=== PATIENT | male | born 1950 | race Caucasian/White ===

== ENCOUNTER 2018-02-26 06:18 | Day surgery (SDC) | payer MEDICARE ==
[~2018-02-26] VITALS: Ht 180.3 cm; Wt 93.3 kg
[~2018-02-26 06:18] MED LIST: ASPI325T PO; ATOR20TA PO; CART120C2 PO; CLOP75 PO; DIGO0.25 PO; LISI-360 PO; METO25 PO; NITR0.4S SL
[2018-02-26] MEDS ORDERED: IOHEXOL 350 MG/ML 100 ML BTL (for Cath Lab) OTHER ONE (06:19)
[2018-02-26 06:54] VITALS: BP 168/88; PULSE 71; RESP 18; TEMP 98.1; O2SAT 95
[2018-02-26] MEDS ORDERED: SODIUM CHLOR 0.9% 1000 ML INJ 1,000 ML IV SCH ×2 (07:00→09:46)
[2018-02-26] MEDS ORDERED: DILT180C PO (07:03)
[2018-02-26] MEDS ORDERED: NITR0.4S SL (07:03)
[2018-02-26] MEDS ORDERED: CLOP75TA PO (07:03)
[2018-02-26] MEDS ORDERED: ASPI-183 PO (07:03)
[2018-02-26] MEDS ORDERED: INDO25CA PO (07:03)
[2018-02-26] MEDS ORDERED: ATOR40TA16 PO (07:03)
[2018-02-26] MEDS ORDERED: DIGO0.12 PO (07:03)
[2018-02-26] MEDS ORDERED: HEPARIN-NS/PF FLUSH BAG 2,000 ML IV FLUSH ONE (07:52)
[2018-02-26] MEDS ORDERED: NITROGLYCERIN INJ 5 ML ONE (07:53)
[2018-02-26] MEDS ORDERED: HEPARIN SODIUM - IV 10,000 UNITS/10 ML VIAL ONE (07:53)
[2018-02-26] MEDS ORDERED: MIDAZOLAM HCL 2 MG/2 ML VIAL ONE (08:07)
[2018-02-26] MEDS ORDERED: diphenhydrAMINE HCL 50 MG/ML VIAL ONE (08:07)
[2018-02-26] MEDS ORDERED: HYDROCORTISONE SOD SUCCINATE 100 MG VIAL ONE (08:14)
[2018-02-26] MEDS ORDERED: BIVALIRUDIN 250 MG VIAL ONE (09:08)
[2018-02-26] MEDS ORDERED: BIVALIRUDIN INJ 250 MG in SODIUM CHLORIDE 0.9% INJ 50 ML IV SCH (09:46)
--- NOTE | 2018-02-26 09:55 | CATHPROC ---
[facility] HIS Report Study Information Study Number Admission Scheduled Start Study Start [id number] Feb 26 2018 6:18AM 02/26/2018 Feb 26 2018 8:03AM [place] [facility] Cardiac Catheterization Admit Source Facility Department Other [facility] - Marketing Strategy Analyst Physician and Clinical Staff Initial Terrell Shook Classroom Assistant Jose Sales,RYANN Other cathlab, cathlab Recorder Amari Whiting RCIS(BS) Recorder Gaby Hobbs BSN Scrub Indigo AveryRT(R) Procedures Performed Procedure Location (Site) Vessel Name Coronary Angiograms LCA Left Coronary Coronary Angiograms RCA Right Coronary Drug Eluting Inflatio LAD Mid Left Coronary Drug Eluting Inflatio RCA Mid Right Coronary L Heart Cath PTCA LAD Mid Left Coronary PTCA RCA Mid Right Coronary Wire insertion Radial (right) Radial Art. Equipment Time Language Translator Description Size Mfg Part Number Used/Scraped COPILOT VALVE, BLEEDBACK [id number] 08:49 [employer] Used CONTROL *[id number] TRANSDUCER, TRUWAVE [id number] 08:13 BRADLEY REGALADO * Used W/STOCKCOCK *[id number] [phone] *[id number] *[id number] [phone] *[id number] 08:13 [employer]Rx PACK, CCL CUSTOM * Used *[id number] 08:13 [employer] SUPPORT, ARTERIAL ADULT 52480 *[id number] Used [id number] 08:13 [facility] PACER PEN, SKIN DUAL W/ RULER * Used *[id number] BALLOON, 2.25 X 20MM [id number] 09:11 MEDTRONIC 20MM Used EUPHORA *[id number] BALLOON, 3.0 X 15MM NC [id number] 09:38 MEDTRONIC 15MM Used EUPHORA *[id number] 08:19 MEDTRONIC JR 5.0 DXTERITY CATHETER fr 5 [id number] Used 09:15 MEDTR[employer]IC STENT, 2.25 26MM TONI 2.25 26MM [id number] Used [id number] 09:32 [employer] STENT, 3.0 26MM TONI 3.0 26MM Used *[id number] 09:12 [employer]Samp MEDICAL 30 KALIA INDEFLATOR Used *[id number] BAND, RADIAL COMPRESSION TR [id number] 09:46 [employer] MEDICAL 24CM Used SHORT 24 *[id number] SHEATH, FR6 RADIAL PRELUDE 08:13 [employer] FR 6 [id number] Used EASE 11CM [id number] 08:13 [employer] MEDICAL WIRE, EXCHANGE 260CM 3MMJ 260CM Used *[id number] 08:13 [employer] OMNIPAQUE, 350 MG, 150ML 150ML [id number] Used [id number] 08:13 [facility] BLANKET,WARM AIR CCL * Used *[id number] WIRE, RUNTHROUGH NS FLOPPY [id number] 09:28 TERncyclo[employer] MEDICAL 180CM Used .014 180CM *[id number] 08:51 [employer] PRIME WIRE, VERRATA 185CM 185CM Used *[id number] Equipment Model, Serial, Lot Number and Expiration Data Description Model Number Serial Number Lot Number Expiration Date JR 5.0 DXTERITY CATHETER [id number] 05-15-2020 STENT, 2.25 26MM TONI [id number] 09-29-2019 STENT, 3.0 26MM TONI [id number] 11-09-2019 History: Current Medications Medication Dosage/Unit Route Frequency Last Date/Time Taken Statins (any) ASA PLAVIX History: Allergies Allergy Reaction potassium iodide RASH/ITCH sodium iodide RASH/ITCH iodine RASH/ITCH povidone-iodine RASH/ITCH metoprolol HIVES History: Risk Factors Family History of Hypertension Dyslipidemia Previous [place] Previous Heart Failure Premature CAD Yes Yes Yes No No Prior Valve Prior PCI Prior PCIDate Prior CABG Surgery No Yes 10/13/2010 No Cerebrovascular Peripheral Artery Chronic Lung On Dialysis Diabetes Disease Disease Disease No No No No No History: Symptoms/Diagnosis Selection Items Chest pain History: CV Disease Selection Items Known CAD History: Stress Tests Stress or Imaging Studies Performed Yes Stress Test SPECT Stress Test SPECT Result Stress Test SPECT Ischemia Risk/Extent Yes Positive Intermediate History: Other Disease Selection Items CAD HTN History: [place]/CV Data Previous Cath Date 10/13/2010 History: Other Current Smoker Method Quit Packs a Day Years Used Pack Years No Cigarettes 30 Years Ago 1 10 10 Labs Hgb (g/dl) Hct (%) WBC (l/cumm) Platelets (thousands) 11.60-17.00 35.00-51.00 4.00-11.00 150.00-450.00 13.6 42 4.9 181 Glucose (mg/dl) BUN (mg/dl) Creatinine (mg/dl) BUN:Creatinine (1:x) 74.00-106.00 7.00-18.00 0.50-1.30 10.00-20.00 159 9 1.0 9 Na (meq/l) K (meq/l) 136.00-145.00 3.50-5.10 142 4.3 INR (PTT:PT) 0.90-1.10 0.9 CPK-MB (ng/ML) 0.50-3.60 Not Drawn Medication Medication Total Dose (Bolus/Oral) Medication Total Dosage/Unit 1% XYLOCAINE 3 mL ANGIOMAX BOLUS 14 mL BENADRYL 25 mg FENTANYL 50 mcg HEPARIN 9000 units NTG (IC) 200 mcg PEPCID 20 mg SOLU-CORTEF 100 mg VERSED 2 mg Medications (Bolus/Oral) Medication Time Given Dosage/Unit Administered By Reason PEPCID 02/26/2018 8:17:20 AM 20 mg Mónica, Jose 20 mg PEPCID given in lab by Jose Sales RN in Left Hand via Peripheral IV. Ordered by Aysha Herman. SOLU-CORTEF 02/26/2018 8:20:20 AM 100 mg Mónica, Jose 100 mg SOLU-CORTEF given in lab by Jose Sales RN in Left Hand via Peripheral IV. Ordered by Terrell Herman. BENADRYL 02/26/2018 8:22:40 AM 25 mg Mónica, Jose 25 mg BENADRYL given in lab by Jose Sales RN in Left Hand via Peripheral IV. Ordered by Poncho Herman. VERSED 02/26/2018 8:32:34 AM 2 mg Mónica, Jose 2 mg VERSED given in lab by Jose Sales RN in Left Hand via Peripheral IV. Ordered by Leslie Herman. FENTANYL 02/26/2018 8:33:43 AM 50 mcg Mónica, Jose 50 mcg FENTANYL given in lab by Jose Sales RN in Left Hand via Peripheral IV. Ordered by St joya Herman. 1% XYLOCAINE 02/26/2018 8:36:48 AM 3 mL Terrell Herman 3 mL 1% XYLOCAINE given in lab by Terrell Herman in Right Radial via Subcutaneous. Ordered by Terrell Herman. NTG (IC) 02/26/2018 8:38:15 AM 200 mcg Terrell Herman 200 mcg NTG (IC) given in lab by Terrell Herman in Right Radial via Intra-arterial. Ordered by Terrell Herman. HEPARIN 02/26/2018 8:39:21 AM 5000 units Jose Sales 5000 units HEPARIN given in lab by Jose Sales RN in Left Hand via Peripheral IV. Ordered by Terrell Herman. HEPARIN 02/26/2018 8:51:16 AM 2000 units Jose Sales 2000 units HEPARIN given in lab by Jose Sales RN in Left Hand via Peripheral IV. Ordered by Terrell Herman. HEPARIN 02/26/2018 9:08:26 AM 2000 units Jose Sales 2000 units HEPARIN given in lab by Jose Sales RN in Left Hand via Peripheral IV. Ordered by Terrell Herman. ANGIOMAX BOLUS 02/26/2018 9:12:57 AM 14 mL Jose Sales 14 mL ANGIOMAX BOLUS given in lab by Jose Sales RN via Peripheral IV. Ordered by Terrell Herman. Medication (Drip) Medication Time Given Dosage/Unit Concentration/Unit Diluent (ml) Solution ANGIOMAX DRIP 02/26/2018 9:19:40 AM 1.747 mg/kg/hr 250 mg 50 NaCl .9 1.747 mg/kg/hr ANGIOMAX DRIP given in lab by Jose Sales RN via Peripheral IV. Pump/Drip Flow = 32. 6 ml/hr using NaCl .9 with a concentration of 250 mg in 50 ml. Ordered by Terrell Herman. IV Solutions 02/26/2018 8:12:09 AM 0 mL (IV) 500 NaCl .9 Patient arrived on IV Solutions given by cathlab, cathlab in Left Hand via Peripheral IV. Pump/Drip F low = 20 ml/hr using NaCl .9. Ordered by Terrell Herman. Initial Case Assessment Cardiovascular HR Rhythm NIBP Chest Pain 71 nsr 160/87 0 Edema Present Skin color Skin None Normal Warm Dry Circulatory - Right Pulses Dorsalis Pedis Femoral Radial 2 2 2 Scale (0,1,2,3,4,d) Scale (0,1,2,3,4,d) Circulatory - Lower Extremities Color Lower Right Color Lower Left Normal Normal Neurological State Oriented to time-place- Alert Moves all extremities person Respiration - General Respiration Rate SpO2 (%) (B/min) 15 97 Final Case Assessment Cardiovascular HR Rhythm NIBP Chest Pain 87 nsr 159/93 0 Edema Present Skin color Skin None Normal Warm Dry Circulatory - Right Pulses Dorsalis Pedis Femoral Radial 2 2 2 Scale (0,1,2,3,4,d) Scale (0,1,2,3,4,d) Circulatory - Lower Extremities Color Lower Right Color Lower Left Normal Normal Neurological State Oriented to time-place- Alert Moves all extremities person Respiration - General Respiration Rate SpO2 (%) (B/min) 12 99 Chronological Log Time Study Chronological Log 8:05:33 Patient arrived via Bed. 8:05:34 Patient Name, D.O.B, / Armband Verified By R.N. 8:05:34 Consent signed by the physician and the patient and verified by the Marketing Strategy Analyst staff. 8:05:37 Allens test performed on the right radial and ulnar artery. 8:05:40 Patient has been NPO for More than 6Hrs. 8:11:58 Skin Breakdown- none per patient 8:11:59 Patient Warmer Placed on the Table. 8:11:59 Willy Prominences Protected 8:12:01 A # 20 IV was noted in the Hand (left). Grade = 0 Patient arrived on IV Solutions given by cathlab, cathlab in Left Hand via Peripheral IV. Pump/ Drip Flow = 20 ml/hr 8:12:09 using NaCl .9. Ordered by Terrell Herman. 8:12:28 History and physical on the chart or being dictated. 8:12:32 Allens test performed on the right radial and ulnar artery. POSITIVE. Assessment: Initial Case, HR=71 BPM, Rhythm=nsr, AISW=830/87 mmhg, Chest Pain=0, Edema=None, Co jam=Normal, Skin = Warm, Dry Right Pulses: Saji Ped=2, Femoral=2, Radial=2 8:13:23 Lower Right Extremities: Color=Normal Lower Left Extremities: Color=Normal Neurological: State=Alert, Ox3, [place] Respiration: Resp=15 B/min, SpO2=97 % 8:13:24 Reference ECG taken Vitals capture started with the following parameters, Patient=Adult, Interval=5 min, Initial Pre qcxox=520 mmHg, 8:13:25 Deflation Rate=5 mmHg, Cuff placed on Left Arm 8:14:04 HR=73 bpm, UCUO=300/87 mmhg, SpO2=98.0 %, Resp=15 B/min, Pain=0, Tera=10, Greene=2 8:17:20 20 mg PEPCID given in lab by Jose Sales RN in Left Hand via Peripheral IV. Ordered by Terrell Celis. 8:19:09 HR=75 bpm, PWVV=802/81 mmhg, SpO2=97.0 %, Resp=13 B/min, Pain=0, Tera=10, Greene=2 8:19:54 Right Radial and groin(s) prepped with 2% chlorhexidine, and draped after a 3 min. waiting t wilfred. 8:20:20 100 mg SOLU-CORTEF given in lab by Jose Sales RN in Left Hand via Peripheral IV. Ordered by Terrell Herman. 8:22:40 25 mg BENADRYL given in lab by Jose Sales RN in Left Hand via Peripheral IV. Ordered by Terrell Bhagat. 8:24:08 HR=73 bpm, DNXW=870/89 mmhg, SpO2=99.0 %, Resp=14 B/min, Pain=0, Tera=10, Greene=2 8:25:03 paged 8:26:40 Pressure channel 1 zeroed. 8:28:50 MD responded 8:29:09 HR=73 bpm, PSCE=684/92 mmhg, SpO2=99.0 %, Resp=14 B/min, Pain=0, Tera=10, Greene=2 8:32:03 arrived. 8:32:07 Contrast Scanned 8:32:07 Immediate Presedation assesment performed by physician. 8:32:34 2 mg VERSED given in lab by Jose Sales RN in Left Hand via Peripheral IV. Ordered by Terrell Rutledge. 8:33:43 50 mcg FENTANYL given in lab by Jose Sales RN in Left Hand via Peripheral IV. Ordered by Terrell Herman. 8:34:10 HR=84 bpm, KKBN=790/80 mmhg, SpO2=99.0 %, Resp=14 B/min, Pain=0, Tera=10, Greene=2 Time Out. Correct patient, correct procedure, correct physician, power injector not loaded with contrast with surgical 8:36:08 team present. Time Out Concurred by MD and individual staff in procedure. 8:36:27 Case Start 8:36:28 Verbal Stimulation=2 Physical Stimulation=2 Airway=2 Respiration=2 TOTAL=8. (0=absent, 1=antunez ited, 2=present) 8:36:48 3 mL 1% XYLOCAINE given in lab by Terrell Herman in Right Radial via Subcutaneous. Ordered b Terrell Chambers. 8:37:39 Access site was Right Radial Artery. A SHEATH, FR6 RADIAL PRELUDE EASE 11CM FR 6 was advanced into the Radial (right) using the Roman vasquez 8:38:08 technique. 8:38:15 200 mcg NTG (IC) given in lab by Terrell Herman in Right Radial via Intra-arterial. Ordered by Terrell Herman. 8:38:55 In the Radial (right) the SHEATH, FR6 RADIAL PRELUDE EASE 11CM FR [address] by Terrell Herman. 8:39:11 HR=77 bpm, ZCXA=827/84 mmhg, SpO2=95.0 %, Resp=13 B/min, Pain=0, Tera=10, Greene=2 8:39:21 5000 units HEPARIN given in lab by Jose Sales RN in Left Hand via Peripheral IV. Ordered by Terrell Herman. 8:39:45 A JR 5.0 DXTERITY CATHETER fr 5 was advanced over a wire. contrast was used for injections. Recorded Pressure: Ao, HR=71, Condition=Condition 1 8:40:12 (Aorta) Ao 89/47/68 8:40:24 The RCA was injected and visualized at various angles. OMNIPAQUE, 350 MG, 150ML 150ML used. After removing the current catheter a JL 3.5 INFINITI CATHETER FR 5 was advanced over a WIRE, EX CHANGE 260CM 8:42:07 3MMJ 260CM. Recorded Pressure: Ao, HR=71, Condition=Condition 1 8:42:18 (Aorta) Ao 48/26/36 Vitals capture started with the following parameters, Patient=Adult, Interval=5 min, Initial Pre mpkzc=090 mmHg, 8:43:28 Deflation Rate=5 mmHg, Cuff placed on Left Arm 8:44:08 HR=71 bpm, WJDK=462/79 mmhg, SpO2=93.0 %, Resp=15 B/min, Pain=0, Tera=10, Greene=2 8:45:24 The LCA was injected and visualized at various angles. OMNIPAQUE, 350 MG, 150ML 150ML used. 8:48:26 Catheter was removed 8:49:07 HR=77 bpm, RBFY=707/80 mmhg, SpO2=94.0 %, Resp=11 B/min, Pain=0, Tera=9, Greene=2 8:50:58 A AL 3 GUIDE CATHETER FR 6 was advanced over a wire. OMNIPAQUE, 350 MG, 150ML 150ML was used for injections. 8:51:16 2000 units HEPARIN given in lab by Jose Sales RN in Left Hand via Peripheral IV. Ordered by Terrell Herman. 8:54:09 HR=80 bpm, FYCQ=908/82 mmhg, SpO2=94.0 %, Resp=11 B/min, Pain=0, Tera=9, Greene=2 8:59:03 HR=71 bpm, MAKW=878/82 mmhg, SpO2=95.0 %, Resp=11 B/min, Pain=0, Tera=10, Greene=2 9:00:14 A PRIME WIRE, VERRATA 185CM 185CM was inserted via Radial (right). 9:01:54 Interventional wire has crossed the lesion 9:02:13 Flow Wire was was placed in the LAD Mid. The FFR measures ~FFR~ percent. The IFR measures 0. 89 Percent. 9:04:07 HR=71 bpm, MRFB=409/82 mmhg, SpO2=96.0 %, Resp=12 B/min, Pain=0, Tera=10, Greene=2 9:04:53 Flow Wire was was placed in the LAD Mid. The FFR measures ~FFR~ percent. The IFR measures 0. 88 Percent. 9:05:35 Flow Wire was was placed in the LAD Prox. The FFR measures ~FFR~ percent. The IFR measures 0 .95 Percent. 9:08:26 2000 units HEPARIN given in lab by Jose Sales RN in Left Hand via Peripheral IV. Ordered by Terrell Herman. 9:09:10 HR=74 bpm, FJIX=415/78 mmhg, SpO2=97.0 %, Resp=13 B/min, Pain=0, Tera=9, Greene=2 A BALLOON, 2.25 X 20MM EUPHORA 20MM was inserted over PRIME WIRE, VERRATA 185CM 185CM via the Ra dial 9:11:50 (right). A BALLOON, 2.25 X 20MM EUPHORA 20MM over a PRIME WIRE, VERRATA 185CM 185CM in the LAD Mid was in flated 9:12:11 using a 30 KALIA INDEFLATOR at 12 kalia for 20 sec. 9:12:57 14 mL ANGIOMAX BOLUS given in lab by Jose Sales RN via Peripheral IV. Ordered by Haylee Herman. 9:13:07 Balloon Removed. 9:14:09 HR=73 bpm, ABGQ=190/84 mmhg, SpO2=96.0 %, Resp=13 B/min, Pain=0, Tera=9, Greene=2 A STENT, 2.25 26MM TONI 2.25 26MM was advanced through a AL 3 GUIDE CATHETER FR 6 over a PRIME W NEGIN, 9:15:06 VERRATA 185CM 185CM. A STENT, 2.25 26MM TONI 2.25 26MM was deployed using a 30 KALIA INDEFLATOR at 16 atmospheres for 1 0 seconds 9:15:56 in the LAD Mid. 9:17:18 Re-inflated the stent balloon in the LAD Mid to 6 KALIA for 30 seconds. 9:19:08 HR=85 bpm, NQHR=593/89 mmhg, SpO2=97.0 %, Resp=14 B/min, Pain=0, Tera=9, Greene=2 9:19:20 Delivery device removed 9:19:28 The PRIME WIRE, VERRATA 185CM 185CM was removed. 9:19:36 Catheter was removed 1.747 mg/kg/hr ANGIOMAX DRIP given in lab by Jose Sales RN via Peripheral IV. Pump/Drip Flow = 32.6 ml/hr 9:19:40 using NaCl .9 with a concentration of 250 mg in 50 ml. Ordered by Terrell Herman. A JL 3.5 INFINITI CATHETER FR 5 was advanced over a wire. OMNIPAQUE, 350 MG, 150ML 150ML was use d for 9:20:31 injections. 9:21:41 The LCA was injected and visualized at various angles. OMNIPAQUE, 350 MG, 150ML 150ML used. After removing the current catheter a JR 5.0 GUIDE CATHETER FR 6 was advanced over a WIRE, EXCHA NGE 260CM 9:23:35 3MMJ 260CM. 9:24:11 HR=86 bpm, QEWL=948/87 mmhg, SpO2=97.0 %, Resp=14 B/min, Pain=0, Tera=9, Greene=2 A MPA-2 INFINITI CATHETER FR 4 was advanced over a wire into the guide. OMNIPAQUE, 350 MG, 150ML 150ML was 9:25:36 used for injections. 9:26:55 MPA catheter was removed 9:28:04 A WIRE, RUNTHROUGH NS FLOPPY .014 180CM 180CM was inserted via Radial (right). 9:29:12 HR=79 bpm, YTRS=845/88 mmhg, SpO2=98.0 %, Resp=14 B/min A BALLOON, 2.25 X 20MM EUPHORA 20MM was inserted over WIRE, RUNTHROUGH NS FLOPPY .014 180CM 180C M 9:29:12 via the Radial (right). A BALLOON, 2.25 X 20MM EUPHORA 20MM over a WIRE, RUNTHROUGH NS FLOPPY .014 180CM 180CM in the RC A 9:29:57 Mid was inflated using a 30 KALIA INDEFLATOR at 12 kalia for 12 sec. 9:30:51 Balloon Removed. A STENT, 3.0 26MM TONI 3.0 26MM was advanced through a JR 5.0 GUIDE CATHETER FR 6 over a WIRE, 9:31:58 RUNTHROUGH NS FLOPPY .014 180CM 180CM. A STENT, 3.0 26MM TONI 3.0 26MM was deployed using a 30 KALIA INDEFLATOR at 16 atmospheres for 13 seconds in 9:32:20 the RCA Mid. 9:34:09 HR=82 bpm, FWHK=586/94 mmhg, SpO2=98.0 %, Resp=14 B/min, Pain=0, Tera=9, Greene=2 9:37:10 Delivery device removed A BALLOON, 3.0 X 15MM NC EUPHORA 15MM was inserted over WIRE, RUNTHROUGH NS FLOPPY .014 180CM 1 80CM 9:38:13 via the Radial (right). A BALLOON, 3.0 X 15MM NC EUPHORA 15MM over a WIRE, RUNTHROUGH NS FLOPPY .014 180CM 180CM in the RCA 9:38:54 Mid was inflated using a 30 KALIA INDEFLATOR at 20 kalia for 20 sec. 9:39:12 HR=79 bpm, RCPU=990/85 mmhg, SpO2=98.0 %, Resp=13 B/min, Pain=0, Tera=9, Greene=2 9:39:32 Balloon Removed. 9:39:39 Wire removed 9:39:51 Catheter was removed over a wire 9:40:02 Case End 9:40:19 No case complications noted. 9:40:20 Cine recording checked. 9:44:11 HR=79 bpm, ELHD=434/93 mmhg, SpO2=98.0 %, Resp=14 B/min, Pain=0, Tera=10, Greene=2 Radial Compression Device Used. 10 mLs of air placed in BAND, RADIAL COMPRESSION TR SHORT 24 24 CM. Affected 9:45:05 hand 95 % O2 saturation. 9:46:33 Holding Area notified of successful intervention. 9:46:44 Bedside Report will be given. 9:46:45 Implantable Device card placed in patient's chart. 9:46:50 A Left Heart Cath was performed. Assessment: Final Case, HR=87 BPM, Rhythm=nsr, LWJE=668/93 mmhg, Chest Pain=0, Edema=None, [place] r=Normal, Skin = Warm, Dry Right Pulses: Saji Ped=2, Femoral=2, Radial=2 9:47:13 Lower Right Extremities: Color=Normal Lower Left Extremities: Color=Normal Neurological: State=Alert, Ox3, [place] Respiration: Resp=12 B/min, SpO2=99 % 9:48:41 Vitals capture stopped. 9:50:54 Patient moved to stretcher End Study - Contrast Media Used In Study Contrast Total Opened (mL) Total Used (mL) Total Wasted (mL) Omnipaque 155 155 0 End Study - Maximum Contrast Load Max Contrast Load (mL) 466.6 End Study - Radiation Exposure Fluoro Time (minutes) 11.6 End Study - Patient Disposition Complications Transferred To Interventional Outcome No Marketing Strategy Analyst Holding successful
[2018-02-26] MEDS ORDERED: oxyCODONE/ACETAMINOPHEN 5 MG/325 MG TAB PO PRN (10:00)
[2018-02-26] MEDS ORDERED: TEMAZEPAM 15 MG CAP PO PRN (10:00)
[2018-02-26] MEDS ORDERED: ACETAMINOPHEN 325 MG TAB PO PRN (10:00)
[2018-02-26] MEDS ORDERED: BACITRACIN OINT 0.9 GM PKT TOP ONE (10:00)
[2018-02-26] MEDS ORDERED: LIDOCAINE 2% JELLY 30 ML TUBE TOP PRN (10:00)
[2018-02-26] MEDS ORDERED: MISC INFORMATION XX ONE (10:00)
--- NOTE | 2018-02-26 10:33 | MA ---
cc: Terrell Herman MD DATE: 02/26/2018 INDICATION: Unstable angina, intermediate risk stress test. PROCEDURES PERFORMED: 1. Fluoroscopy with interpretation. 3. Coronary angiography. 2. Pressure derived fractional flow reserve measurement of the left anterior descending coronary artery. 4. Percutaneous coronary intervention with drug-eluting stents to the mid-left anterior descending and mid-right coronary arteries. METHOD: Risks, benefits and alternatives were discussed with the patient. The patient understood and consented to the procedure. The patient was brought into the catheterization lab. The patient placed on the catheterization table. The right wrist was prepped and draped in sterile fashion. The right wrist was anesthetized with 2% lidocaine. The right radial artery was cannulated. A 6-Welsh, 7-cm sheath was placed without difficulty. 200 mcg of intraarterial nitroglycerin and 5000 units of intravenous heparin was administered through the sheath. CORONARY ANGIOGRAPHY: 1. Left main coronary has mild luminal irregularities. 2. Left anterior descending coronary has about a 50% stenosis proximally. The midsegment is smaller caliber size with 75% stenosis present. The distal left anterior descending coronary has mild luminal irregularities. A couple small diagonal branches which have some minor luminal irregularities. 3. Circumflex has about a 30% stenosis in the mid-segment, bifurcation of a moderate-sized obtuse marginal branch. 4. Right coronary has a stent present through the entire mid-segment. There is 80% stenosis in the mid-segment. Posterior descending and posterolateral branch are widely patent. Right coronary artery is dominant. PRESSURE DERIVED FRACTIONAL FLOW RESERVE MEASUREMENT IN THE LEFT ANTERIOR DESCENDING CORONARY ARTERY: The left anterior descending coronary appeared angiographically borderline for stenosis. We engaged the left coronary system with a 6-Welsh AL3 guide catheter. Pressure wire was then zeroed and advanced to the end of the catheter and normalized. The wire was then advanced to the mid-left anterior descending coronary just beyond the lesion of the mid-stenosis. IFR was performed in two attempts, which came back as 0.88, which does meet hemodynamic significance. We pulled the pressure wire back to just beyond the proximal stenosis and repeated the IFR which came back at 0.95, which does not meet hemodynamic stenosis. This result would suggest that the mid-left anterior descending coronary artery is significant whereas the proximal is not. PERCUTANEOUS INTERVENTION: A 2.25 x 20 mm RX balloon was then advanced down to the mid-segment of the left anterior descending coronary and deployed. Repeat angiography still showed severe residual stenosis. A 2.25 x 26 mm RX Resolute Prieto drug-eluting stent was advanced down to the mid-left anterior descending coronary and deployed. Repeat angiography showed no residual stenosis. Attention was then directed towards the right coronary artery. A JR5 guide catheter was selectively engaged in the right coronary artery. A 0.014-inch, 180-cm Appsindep RunThrough wire was navigated down the distal posterior descending branch. The 2.25 x 20 mm RX balloon was then deployed in the mid-segment just to gather length of the lesion. A 3.0 x 26 mm RX Resolute drug-eluting stent was then advanced down to the mid-segment and deployed, postdilated with a 3.0 x 15 mm RX Noncompliant balloon to 20 atmospheres. Repeat angiography showed no residual stenosis, MITALI 3 flow. Wires were removed. Guide catheter removed. HemoBand applied. Angiomax administered through the entire procedure to maintain appropriate anticoagulation. CONCLUSIONS: 1. Severe mid-left anterior descending coronary stenosis confirmed by pressure derived fractional flow reserve measurement. 2. Severe in-stent restenosis of the mid-right coronary artery. 3. Successful percutaneous intervention with drug-eluting stents to the mid-left anterior descending coronary and mid-right coronary arteries. PLAN: The patient will be monitored closely for any post-procedure complication, continued on aggressive medical therapy which includes aspirin, Plavix, statin therapy. The patient has history of COPD and a calcium channel rickey in contraindication to beta blockade. If the patient does well, we may consider discharge later today since we went from a radial approach and he has already confirmed he tolerates Plavix well. MD SIVAN Freitas/SB , 09:54 AM , 10:32 AM
== END 2018-02-26 15:07 | disposition home or self-care (01) ==
LOC: HDOC 06:18 → HDIC 06:18 → HDOC 15:07
PROVIDERS: ATTEND Internal Medicine
DX: I25.110 Atherosclerotic heart disease of native coronary artery with unstable angina pectoris (principal); I48.0 Paroxysmal atrial fibrillation; I10 Essential (primary) hypertension; E78.5 Hyperlipidemia, unspecified; J44.9 Chronic obstructive pulmonary disease, unspecified; Z79.82 Long term (current) use of aspirin; Z72.0 Tobacco use
CPT/HCPCS: 86850; 86900; 86901; 92928; 92929; 93458; 93571; 99152; 99153; C1725; C1769; C1874; C1887; C1893; J0583; J1200; J1644; J1720; J2250; J3010; Q9967

== ENCOUNTER 2018-05-21 20:07 | Inpatient (IN) ==
[2018-05-21] MEDS ORDERED: Nitroglycerin Drip Premix 50 MG/250 ML BOTTLE IV.CONT PRN (20:25)
[2018-05-21] MEDS ORDERED: Morphine Inj 4 MG/ML Vial IV.PUSH ONE (20:25)
[2018-05-21] MEDS ORDERED: Heparin Drip 25,000 UNIT/250 ML BAG IV.CONT PRN (20:37)
[2018-05-21] MEDS ORDERED: Heparin 10,000 UNITS/10 ML Vial (for IV use) IV.PUSH STA (20:38)
--- NOTE | 2018-05-21 20:42 | ED ---
HPI General Chief Complaint: Chest Pain Stated Complaint: chest pain Time Seen by Provider: 05/21/18 20:25 Source: patient Mode of arrival: ambulatory Limitations: no limitations History of Present Illness HPI narrative: Patient is a 67-year-old male with a recent catheterization by Dr. farfan he has cardiac artery disease he is has LAD disease as well as right coronary artery disease he has an allergy to beta-blockers they give him a severe rash and I am unable to give him any Lopressor he took is on baby aspirin 3:00 today while at rest left-sided chest pain that radiates up his shoulder and down his left arm heaviness constant it is not alleviated he took his own be full 325 aspirin without relief of symptoms. Comes into the ER he is not diaphoretic is not nauseous he is not vomiting his heart rate is 100 on the monitor and on his EKG normal sinus at a rate of 101 on EKG I give him morphine to do for vasodilation I give him nitroglycerin drip for vasodilation and I give him heparin to anticoagulate and I called Dr. Farfan who agrees with the plan and I will admit him to telemetry if his troponins returned normal otherwise he may go to cath if his troponins come back elevated and trying to get him pain-free with the nitroglycerin drip complaint: chest pain Complete Quality Measures for STEMI Alert Patients STEMI Alert: No Onset (ago): hour(s) Duration: constant Onset: during rest Pain location: substernal and left chest Severity: moderate Severity scale (1-10): 5 Quality: heaviness Pain radiation: LUE Relieving factors: nothing Exacerbating factors: nothing Context: other (We have stents placed in February by Dr. farfan) Treatments prior to arrival chest pain: aspirin (325mg po) Related Data Home Medications Medication Instructions Recorded Confirmed atorvastatin 20 mg PO DAILY 05/21/18 05/21/18 clopidogrel 75 mg PO DAILY 05/21/18 05/21/18 digoxin mg PO DAILY 05/21/18 diltiazem HCl [Cartia XT] mg PO DAILY 05/21/18 Allergies Allergy/AdvReac Type Severity Reaction Status Date / Time metoprolol Allergy Severe HIVES Verified 05/21/18 20:13 iodine Allergy Unknown RASH/ITCH Verified 05/21/18 20:13 potassium iodide Allergy Unknown RASH/ITCH Verified 05/21/18 20:13 povidone-iodine Allergy Unknown RASH/ITCH Verified 05/21/18 20:13 sodium iodide Allergy Unknown RASH/ITCH Verified 05/21/18 20:13 sodium iodide Allergy Unknown RASH/ITCH Verified 05/21/18 20:13 Review of Systems ROS: all other systems reviewed are negative Cardiovascular Reports chest pain and Reports chest pain at rest [facility] Medical History Medical History HTN (hypertension) (Acute) High cholesterol (Acute) Surgical History Surgical History Hx of heart artery stent (Acute) Social History Social History Substance History: No History of Abuse Smoking Status: Former smoker How Often Do You Have a Drink Containing Alcohol: Never Recent Travel in [facility] within the Last 8 Weeks: No Recent Out of Country Travel within the Last 8 Weeks: No Immunization History Tetanus Immunization: Unsure Hx Influenza Vaccine This Season: No Exam Narrative Exam Narrative: GENERAL: Awake alert no diaphoresis no sign of distress SKIN: Warm and dry. HEAD: Atraumatic. Normocephalic. EYES: Pupils equal and round. No scleral icterus. No injection or drainage. ENT: No nasal bleeding or discharge. Mucous membranes pink and moist. NECK: Trachea midline. No JVD. CARDIOVASCULAR: Regular [id number] bpm and rhythm. Heart rate is 100 sinus RESPIRATORY: No accessory muscle use. Clear to auscultation. Breath sounds equal bilaterally. GASTROINTESTINAL: Abdomen soft, non-tender, nondistended. Hepatic and splenic margins not palpable. MUSCULOSKELETAL: Extremities without clubbing, cyanosis, or edema. No obvious deformities. NEUROLOGICAL: Awake and alert. No obvious cranial nerve deficits. Motor grossly within normal limits. Five out of 5 muscle strength in the arms and legs. Normal speech. PSYCHIATRIC: Appropriate mood and affect; insight and judgment normal. Course Initial Documented Vital Signs Temperature 98.8 F 05/21/18 20:13 Pulse Rate 105 H 05/21/18 20:13 Respiratory Rate 22 05/21/18 20:13 Blood Pressure 171/83 H 05/21/18 20:13 Pulse Oximetry 97 05/21/18 20:13 Last Documented Vital Signs Temperature 98.8 F 05/21/18 20:13 Pulse Rate 92 H 05/22/18 01:56 Respiratory Rate 18 05/22/18 01:56 Blood Pressure 145/74 H 05/22/18 01:56 Pulse Oximetry 96 05/22/18 00:30 Medical Decision Making [facility] Narrative Medical decision making narrative: Patient is given nitroglycerin drip patient is given heparin drip and bolus patient is given aspirin that he took himself at home and patient is given morphine for vasodilation pending troponin will admit to telemetry I spoke with Dr. Farfan who agrees with the plan. Patient has an allergy to Lopressor her beta-blockers will not be able to slow his heart at this time patient's repeat troponin is negative 2 patient's case is discussed with Dr. farfan I admit the patient to Dr. Lawler and Dr. alvarado with output and transitional orders heparinized nitroglycerin drip and admitted to telemetry for cardiac consult in the a.m. repeat EKG is normal sinus rhythm Differential Diagnosis Differential Diagnosis: Mental diagnosis is GERD versus acute coronary syndrome versus ischemic versus coronary artery disease versus vasospasm of coronary arteries versus pneumonia versus gastritis versus pancreatitis versus muscle spasm of neck muscles Lab Data Result diagrams: 05/21/18 20:51 05/21/18 20:51 Lab Results 05/21/18 05/21/18 05/21/18 Range/Units 20:51 20:51 20:51 WBC 10.9 (4.0-11.0) th/mm3 RBC 4.65 (4.50-5.90) mil/mm3 Hgb 14.7 (13.0-17.0) gm/dL Hct 42.8 (39.0-51.0) % MCV 92.0 (80.0-100.0) fL MCH 31.7 (27.0-34.0) pg MCHC 34.4 (32.0-36.0) % RDW 12.6 (11.6-17.2) % Plt Count 193 (150-450) th/mm3 MPV 8.4 (7.0-11.0) fL Neut % (Auto) 81.0 H (16.0-70.0) % Lymph % (Auto) 9.5 (9.0-44.0) % Pike % (Auto) 9.1 H (0.0-8.0) % Eos % (Auto) 0.2 (0.0-4.0) % Baso % (Auto) 0.2 (0.0-2.0) % Neut # (Auto) 8.8 H (1.8-7.7) th/mm3 Lymph # (Auto) 1.0 (1.0-4.8) th/mm3 Pike # (Auto) 1.0 H (0.0-0.9) th/mm3 Eos # (Auto) 0.0 (0.0-0.4) th/mm3 Baso # (Auto) 0.0 (0.0-0.2) th/mm3 WBC Differential . Differential Comment Auto diff final PT 9.9 (9.8-11.6) sec INR 1.0 Ratio APTT 24.6 (24.3-30.1) sec Sodium 138 (136-145) meq/L Potassium 4.2 (3.5-5.1) meq/L Chloride 104 (98-107) meq/L Carbon Dioxide 27.4 (21.0-32.0) meq/L Anion Gap 7 (5-15) meq/L BUN 14 (7-18) mg/dL Creatinine 1.12 (0.60-1.30) mg/dL Estimated GFR 66 L (>89) mL/min Random Glucose 126 H (74-106) mg/dL Calcium 8.8 (8.5-10.1) mg/dL Troponin I Less than 0.02 L (0.02-0.05) ng/mL Digoxin (0.8-2.0) ng/mL 05/21/18 Range/Units 23:35 WBC (4.0-11.0) th/mm3 RBC (4.50-5.90) mil/mm3 Hgb (13.0-17.0) gm/dL Hct (39.0-51.0) % MCV (80.0-100.0) fL MCH (27.0-34.0) pg MCHC (32.0-36.0) % RDW (11.6-17.2) % Plt Count (150-450) th/mm3 MPV (7.0-11.0) fL Neut % (Auto) (16.0-70.0) % Lymph % (Auto) (9.0-44.0) % Pike % (Auto) (0.0-8.0) % Eos % (Auto) (0.0-4.0) % Baso % (Auto) (0.0-2.0) % Neut # (Auto) (1.8-7.7) th/mm3 Lymph # (Auto) (1.0-4.8) th/mm3 Pike # (Auto) (0.0-0.9) th/mm3 Eos # (Auto) (0.0-0.4) th/mm3 Baso # (Auto) (0.0-0.2) th/mm3 WBC Differential Differential Comment PT (9.8-11.6) sec INR Ratio APTT (24.3-30.1) sec Sodium (136-145) meq/L Potassium (3.5-5.1) meq/L Chloride (98-107) meq/L Carbon Dioxide (21.0-32.0) meq/L Anion Gap (5-15) meq/L BUN (7-18) mg/dL Creatinine (0.60-1.30) mg/dL Estimated GFR (>89) mL/min Random Glucose (74-106) mg/dL Calcium (8.5-10.1) mg/dL Troponin I Less than 0.02 L (0.02-0.05) ng/mL Digoxin 0.6 L (0.8-2.0) ng/mL Imaging Data Radiologist's impression: Chest X-Ray 05/21/18 20:37 CONCLUSION: Stable chest without evidence of acute cardiopulmonary process. Discharge Plan Discharge Disposition Patient Disposition: 30 Still Patient Discharge Details Diagnosis: Chest pain Physicians Team ED Provider: Marlon Perez Primary Care Provider: Leroy Turner Attending Provider: Brandon Erickson Other Providers: Terrell Farfan Status ED Status: Admitted Patient
--- NOTE | 2018-05-21 20:56 | XR ---
EXAM DATE: 05/21/2018 8:54 PM EDT AGE/SEX: 67 years / Male INDICATIONS: Chest pain. CLINICAL DATA: This is the patient's initial encounter. Patient reports that signs and symptoms have been present for 1 day and indicates a pain score of 9/10. MEDICAL/SURGICAL HISTORY: . Myocardial infarction. . Stents. COMPARISON: [facility] [place], CHEST SINGLE AP, 03/17/2015. . FINDINGS: A single AP view of the chest demonstrates the lungs to be symmetrically aerated without evidence of mass, infiltrate or effusion. The cardiomediastinal contours are unremarkable. Osseous structures a re intact. CONCLUSION: Stable chest without evidence of acute cardiopulmonary process. Electronically signed by: Nithin Moran MD 05/21/2018 8:55 PM EDT
[2018-05-21 21:27] LABS: Baso % (Auto) 0.2 % (0.0-2.0); Eos % (Auto) 0.2 % (0.0-4.0); Hematocrit 42.8 % (39.0-51.0); Hemoglobin 14.7 gm/dL (13.0-17.0); Lymph % (Auto) 9.5 % (9.0-44.0); Mean Corpuscular HGB Conc 34.4 % (32.0-36.0); Mean Corpuscular Hemoglobin 31.7 pg (27.0-34.0); Mean Platelet Volume 8.4 fL (7.0-11.0); Mono % (Auto) 9.1 % (0.0-8.0); Neut # (Auto) 8.8 th/mm3 (1.8-7.7); Platelet Count 193 th/mm3 (150-450); Red Blood Count 4.65 mil/mm3 (4.50-5.90); Red Cell Distribution Width 12.6 % (11.6-17.2); White Blood Count 10.9 th/mm3 (4.0-11.0)
[2018-05-21 21:40] LABS: Activated Partial Thrombo Time 24.6 sec (24.3-30.1); Prothrombin Time 9.9 sec (9.8-11.6)
[2018-05-21 21:43] LABS: Anion Gap 7 meq/L (5-15); Blood Urea Nitrogen 14 mg/dL (7-18); Calcium 8.8 mg/dL (8.5-10.1); Carbon Dioxide 27.4 meq/L (21.0-32.0); Chloride 104 meq/L (98-107); Glomerular Filtration Rate 66 mL/min (>89); Glucose,Random 126 mg/dL (74-106); Potassium 4.2 meq/L (3.5-5.1); Sodium 138 meq/L (136-145)
[2018-05-21] MEDS ORDERED: Acetaminophen 325 MG Tablet PO PRN (23:21)
[2018-05-22 00:20] LABS: Digoxin 0.6 ng/mL (0.8-2.0)
[2018-05-22] MEDS: Morphine Sulfate Inj 2 MG/ML Vial IV.PUSH PRN ×2 (03:07→07:40)
--- NOTE | 2018-05-22 07:43 | P.CONCA ---
<Eber Escobar - Last Filed: 05/22/18 07:34> History of Present Illness Primary Care Provider: Leroy Turner History of Present Illness: 67-year-old male with past medical history of CAD with RCA stent 2017 and LAD stent 02/2018, paroxysmal atrial fibrillation, HTN, HLD who presented for chest pain. The patient reports at rest yesterday he developed sudden onset of bandlike chest discomfort across the front of his chest, similar to previous angina. Pain 8/10 in severity. He took aspirin and came to the ED, morphine seemed to help the pain some. Pain is still currently 45/10 in severity. EKG appears to show [address] depressions, which are new compared to 2015 EKG. Troponin 0 0.023. Review of Systems All other systems reviewed negative except as stated in HPI PMFSH - History History Provided By: Patient - Medical History Medical History: Medical History (Last Updated 05/22/18 @ 07:38 by LUNA Gordillo) CAD (coronary artery disease) HTN (hypertension) High cholesterol Paroxysmal atrial fibrillation - Surgical History Surgical History: Surgical History (Last Updated 05/21/18 @ 20:17 by Rambo Amato) Hx of heart artery stent - Tobacco History Tobacco Use In Past 30 Days: No Smoking Status: Former smoker - Alcohol History How Often Do You Have a Drink Containing Alcohol: Never - Substance Use History Substance History: No History of Abuse - Travel History Recent Travel in the [place] Within the Last 8 Weeks: No Recent Travel Out of the Country Within the Last 8 Weeks: No - Immunization History Tetanus Immunization: Unsure Hx Influenza Vaccine This Season: No Medications and Allergies Allergies Allergy/AdvReac Type Severity Reaction Status Date / Time metoprolol Allergy Severe HIVES Verified 05/21/18 20:13 iodine Allergy Unknown RASH/ITCH Verified 05/21/18 20:13 potassium iodide Allergy Unknown RASH/ITCH Verified 05/21/18 20:13 povidone-iodine Allergy Unknown RASH/ITCH Verified 05/21/18 20:13 sodium iodide Allergy Unknown RASH/ITCH Verified 05/21/18 20:13 sodium iodide Allergy Unknown RASH/ITCH Verified 05/21/18 20:13 Home Medications Medication Instructions Recorded Confirmed Type atorvastatin 40 mg PO HS 05/21/18 05/22/18 History clopidogrel 75 mg PO DAILY 05/21/18 05/21/18 History digoxin 125 mcg PO DAILY 05/21/18 05/22/18 History diltiazem HCl [Cartia XT] 180 mg PO DAILY 05/21/18 05/22/18 History aspirin 81 mg PO DAILY 05/22/18 05/22/18 History omeprazole 20 mg PO DAILY 05/22/18 05/22/18 History Active Medications: Active Medications Acetaminophen (Tylenol) 650 mg PO Q4H PRN PRN Reason: Acute Pain Nitroglycerin/Dextrose (Nitroglycerin Drip Premix) 50 mg in 250 mls @ 0 mls/hr IV.CONT TITRATE PRN; Protocol PRN Reason: Per Protocol Last Titration: 05/22/18 07:01 Dose: 15 mcg/min, 4.5 mls/hr Heparin Sodium/Dextrose (Heparin/D5w 25,000 U/250 Ml) 25,000 unit in 250 mls @ 0 mls/hr IV.CONT TITRATE PRN; Protocol PRN Reason: Per Protocol Last Titration: 05/22/18 07:01 Dose: 1,000 units/hr, 10 mls/hr Morphine Sulfate (Morphine Inj) 2 mg IV.PUSH Q3H PRN PRN Reason: Acute Pain Last Admin: 05/22/18 03:07 Dose: 2 mg Sodium Chloride (Ns Flush) 2 ml IV.FLUSH UNSCH PRN PRN Reason: FLUSH AFTER USING IV ACCESS Exam Vital signs: Vital Signs 05/21/18 20:13 05/21/18 20:47 05/21/18 21:25 Temperature 98.8 F Pulse Rate 105 H 83 Respiratory Rate 22 18 Blood Pressure 171/83 H 160/84 H Pulse Oximetry 97 97 95 05/21/18 23:31 05/22/18 00:30 05/22/18 01:56 Temperature Pulse Rate 95 H 88 92 H Respiratory Rate 19 18 18 Blood Pressure 145/74 H 141/75 H 145/74 H Pulse Oximetry 95 96 05/22/18 04:59 Temperature Pulse Rate 92 H Respiratory Rate 20 Blood Pressure 143/84 H Pulse Oximetry Intake & Output 05/21/18 05/22/18 05/22/18 18:59 06:59 18:59 Weight 200 lb Narrative: GENERAL: Well-developed well-nourished. In no acute distress. NECK: No carotid bruits. No JVD. CARDIOVASCULAR: Regular rate and rhythm. No murmur appreciated. RESPIRATORY: No accessory muscle use. Clear to auscultation. Breath sounds equal bilaterally. MUSCULOSKELETAL: No clubbing or cyanosis. No edema. NEUROLOGICAL: Awake and alert. Normal speech. Results 05/21/18 20:51 05/21/18 20:51 Cardiac Enzymes 05/21/18 05/21/18 05/22/18 Range/Units 20:51 23:35 05:07 Troponin I Less than 0.02 L Less than 0.02 L Less than 0.02 L (0.02-0.05) ng/mL Coagulation 05/21/18 05/22/18 Range/Units 20:51 05:07 PT 9.9 (9.8-11.6) sec APTT 24.6 40.5 H D (24.3-30.1) sec CBC 05/21/18 Range/Units 20:51 WBC 10.9 (4.0-11.0) th/mm3 RBC 4.65 (4.50-5.90) mil/mm3 Hgb 14.7 (13.0-17.0) gm/dL Hct 42.8 (39.0-51.0) % Plt Count 193 (150-450) th/mm3 Neut # (Auto) 8.8 H (1.8-7.7) th/mm3 Lymph # (Auto) 1.0 (1.0-4.8) th/mm3 Mckean # (Auto) 1.0 H (0.0-0.9) th/mm3 Eos # (Auto) 0.0 (0.0-0.4) th/mm3 Baso # (Auto) 0.0 (0.0-0.2) th/mm3 Comprehensive Metabolic Panel 05/21/18 Range/Units 20:51 Sodium 138 (136-145) meq/L Potassium 4.2 (3.5-5.1) meq/L Chloride 104 (98-107) meq/L Carbon Dioxide 27.4 (21.0-32.0) meq/L BUN 14 (7-18) mg/dL Creatinine 1.12 (0.60-1.30) mg/dL Calcium 8.8 (8.5-10.1) mg/dL Intake and Output 05/21/18 05/22/18 05/22/18 22:59 06:59 14:59 Other: Weight 200 lb Assessment and Plan - Plan 67-year-old male with past medical history of CAD with RCA stent 2017 and LAD stent 02/2018, paroxysmal atrial fibrillation, HTN, HLD who presented for chest pain. The patient reports at rest he developed sudden onset of bandlike chest discomfort across the front of his chest, similar to previous angina. Pain 8/10 in severity. He took aspirin and came to the ED, morphine seemed to help the pain some. Pain is still currently 45/10 in severity. EKG appears to show [address] depressions, which are new compared to 2015 EKG. Troponin 0 0.023. Unstable angina with history of CAD: Keep n.p.o. for [facility] today. Discussed Condition With: Patient, Dr. Herman <Terrell Herman - Last Filed: 05/22/18 12:27> History of Present Illness Primary Care Provider: Leroy Turner [facility] - Medical History Medical History: Medical History (Last Updated 05/22/18 @ 07:38 by LUNA Gordillo) CAD (coronary artery disease) HTN (hypertension) High cholesterol Paroxysmal atrial fibrillation - Surgical History Surgical History: Surgical History (Last Updated 05/21/18 @ 20:17 by Rambo Amato) Hx of heart artery stent Medications and Allergies Active Medications: Active Medications Acetaminophen (Tylenol) 650 mg PO Q4H PRN PRN Reason: Acute Pain Atorvastatin Calcium (Lipitor) 40 mg PO HS DELILAH Digoxin (Lanoxin) 125 mcg PO DAILY [facility] Last Admin: 05/22/18 10:20 Dose: 125 mcg Diltiazem HCl (Cardizem Cd 24hr) 180 mg PO DAILY [facility] Last Admin: 05/22/18 10:20 Dose: 180 mg Nitroglycerin/Dextrose (Nitroglycerin Drip Premix) 50 mg in 250 mls @ 0 mls/hr IV.CONT TITRATE PRN; Protocol PRN Reason: Per Protocol Last Titration: 05/22/18 07:01 Dose: 15 mcg/min, 4.5 mls/hr Heparin Sodium/Dextrose (Heparin/D5w 25,000 U/250 Ml) 25,000 unit in 250 mls @ 0 mls/hr IV.CONT TITRATE PRN; Protocol PRN Reason: Per Protocol Last Titration: 05/22/18 11:03 Dose: 0 units/hr, 0 mls/hr Sodium Chloride (Ns Inj) 1,000 mls @ 84 mls/hr IV.CONT .[id number] [facility] Last Admin: 05/22/18 10:20 Dose: 84 mls/hr Morphine Sulfate (Morphine Inj) 2 mg IV.PUSH Q3H PRN PRN Reason: Acute Pain Last Admin: 05/22/18 07:40 Dose: 2 mg Pantoprazole Sodium (Protonix) 20 mg PO DAILY [facility] Last Admin: 05/22/18 10:20 Dose: 20 mg Sodium Chloride (Ns Flush) 2 ml IV.FLUSH UNSCH PRN PRN Reason: FLUSH AFTER USING IV ACCESS Exam Vital signs: Vital Signs 05/21/18 20:13 05/21/18 20:47 05/21/18 21:25 Temperature 98.8 F Pulse Rate 105 H 83 Respiratory Rate 22 18 Blood Pressure 171/83 H 160/84 H Pulse Oximetry 97 97 95 05/21/18 23:31 05/22/18 00:30 05/22/18 01:56 Temperature Pulse Rate 95 H 88 92 H Respiratory Rate 19 18 18 Blood Pressure 145/74 H 141/75 H 145/74 H Pulse Oximetry 95 96 05/22/18 04:59 05/22/18 07:39 05/22/18 10:23 Temperature Pulse Rate 92 H 92 H 86 Respiratory Rate 20 16 20 Blood Pressure 143/84 H 152/85 H 168/89 H Pulse Oximetry 96 98 Intake & Output 05/21/18 05/22/18 05/22/18 18:59 06:59 18:59 Weight 90.718 kg Results 05/21/18 20:51 05/21/18 20:51 Cardiac Enzymes 05/21/18 05/21/18 05/22/18 Range/Units 20:51 23:35 05:07 Troponin I Less than 0.02 L Less than 0.02 L Less than 0.02 L (0.02-0.05) ng/mL Coagulation 05/21/18 05/22/18 Range/Units 20:51 05:07 PT 9.9 (9.8-11.6) sec APTT 24.6 40.5 H D (24.3-30.1) sec CBC 05/21/18 Range/Units 20:51 WBC 10.9 (4.0-11.0) th/mm3 RBC 4.65 (4.50-5.90) mil/mm3 Hgb 14.7 (13.0-17.0) gm/dL Hct 42.8 (39.0-51.0) % Plt Count 193 (150-450) th/mm3 Neut # (Auto) 8.8 H (1.8-7.7) th/mm3 Lymph # (Auto) 1.0 (1.0-4.8) th/mm3 Mckean # (Auto) 1.0 H (0.0-0.9) th/mm3 Eos # (Auto) 0.0 (0.0-0.4) th/mm3 Baso # (Auto) 0.0 (0.0-0.2) th/mm3 Comprehensive Metabolic Panel 05/21/18 Range/Units 20:51 Sodium 138 (136-145) meq/L Potassium 4.2 (3.5-5.1) meq/L Chloride 104 (98-107) meq/L Carbon Dioxide 27.4 (21.0-32.0) meq/L BUN 14 (7-18) mg/dL Creatinine 1.12 (0.60-1.30) mg/dL Calcium 8.8 (8.5-10.1) mg/dL Intake and Output 05/21/18 05/22/18 05/22/18 22:59 06:59 14:59 Other: Weight 90.718 kg Assessment and Plan - Attending Attestation LHC mild-mod dz. stents patent. asa plavix bb isosorbide 60 daily FU in OPD
--- NOTE | 2018-05-22 08:56 | P.HPIM ---
History of Present Illness Primary Care Physician: Leory Turner Chief Complaint: Chest pain History of Present Illness: Mr. Downs is a pleasant 67 y/o WM with CAD s/p RCA stent in 2010 and RCA and LAD stent in 02/2018, paroxysmal atrial fibrillation, HTN, Hyperlipidemia, and diet controlled diabetes. He presented to the ED at [facility] on 05/21/18 for chest pain. The patient reports that when he woke up yesterday he felt a sharp pain in the left side of his chest which radiated into the left arm. He reports that it was a constant pain throughout the day and progressively seemed to worsen. He took aspirin at home yesterday evening after he laid down and started having some diaphoresis and chills and when the pain did not improve or resolve he decided to come to the ED for further evaluation. Pt was given morphine in the ED which seemed to help some with the pain but it is still currently present. EKG appears to show [address] depressions, which are new compared to 2015 EKG. Serial CE were negative. Pt was started on Heparin gtt and Nitro gtt in the ED. He has been seen by Cardiology this morning and they are planning for LHC this afternoon. Secondarily the pt also complained of pain and swelling in the left elbow for the last 2-3 days. It is very sensitive to touch and pt is unable to move the joint much at all due to significant pain. Denies any trauma or injury. Denies any recent excessive use/activity. He does have a hx of gout in his great toe. Past Medical Hx: CAD HTN Hyperlipidemia Paroxysmal atrial fibrillation Diabetes mellitus, diet controlled GERD Chronic back pain Osteoarthritis Hx of gout 2D echo (03/04/18): - LV wall thickness measured at the upper limits of normal - Estimated EF 60-65% - Trace to mild mitral regurg - Trace aortic valve regurg - Mild tricuspid valve regurg - PA pressure 30.2mmHg Past Surgical Hx: LHC on 02/26/18 --> Severe mid LAD stenosis, severe in stent restenosis of the mid RCA s/p HETAL to mid LAD and mid RCA LHC in 2010 with RCA stent x 2 Tonsillectomy Colonoscopy Family Hx: Mother from breast cancer Father with hx of CAD Brother with hx of CAD Social Hx: Remote hx of tobacco use, smoked about 0.5-1ppd x 10 years, quit in the 70's Denies any alcohol or illicit drug use 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 This includes certification that hospital inpatient services are reasonable and necessary and in the case of services not specified as inpatient-only under 42 CFR 419.22(n), that they are appropriately provided as inpatient services in accordance to with the 2-midnight benchmark under 43 CFR 412.3(e) Estimated Total Length of Stay (Days): 2 Plans for Post Hospital Care: Home Review of Systems All other systems reviewed negative except as stated in HPI Constitutional: Reports chills, Reports excessive sweating Eyes: Denies change in vision Ears, Nose, Mouth, and Throat: Denies dizziness, Denies nasal congestion, Denies sore throat Cardiovascular: Reports chest pain, Reports chest pain at rest, Reports chest pain with activity, Reports excessive sweating, Denies rapid, pounding, or irregular heartbeat, Denies shortness of breath Respiratory: Denies cough, Denies shortness of breath, Denies wheezing Gastrointestinal: Denies abdominal pain, Denies loose stools, Denies nausea, Denies vomiting Genitourinary: Denies urinary frequency, Denies urinary hesitancy Musculoskeletal: Reports joint pain, Reports joint swelling, Denies muscle weakness Skin/Breast: Denies rash Neurologic: Denies abnormal movements, Denies abnormal speech, Denies dizziness , Denies headache(s), Denies tingling/numbness/burning sensations Psychiatric: Denies anxiety, Denies confusion, Denies depression PMFSH - History History Provided By: Patient - Medical History Medical History: Medical History (Last Updated 05/22/18 @ 07:38 by LUNA Gordillo) CAD (coronary artery disease) HTN (hypertension) High cholesterol Paroxysmal atrial fibrillation - Surgical History Surgical History: Surgical History (Last Updated 05/21/18 @ 20:17 by Rambo Amato) Hx of heart artery stent - Tobacco History Tobacco Use In Past 30 Days: No Smoking Status: Former smoker - Alcohol History How Often Do You Have a Drink Containing Alcohol: Never - Substance Use History Substance History: No History of Abuse - Travel History Recent Travel in the [place] Within the Last 8 Weeks: No Recent Travel Out of the Country Within the Last 8 Weeks: No - Immunization History Tetanus Immunization: Unsure Hx Influenza Vaccine This Season: No Medications and Allergies Active Medications: Active Medications Acetaminophen (Tylenol) 650 mg PO Q4H PRN PRN Reason: Acute Pain Nitroglycerin/Dextrose (Nitroglycerin Drip Premix) 50 mg in 250 mls @ 0 mls/hr IV.CONT TITRATE PRN; Protocol PRN Reason: Per Protocol Last Titration: 05/22/18 07:01 Dose: 15 mcg/min, 4.5 mls/hr Heparin Sodium/Dextrose (Heparin/D5w 25,000 U/250 Ml) 25,000 unit in 250 mls @ 0 mls/hr IV.CONT TITRATE PRN; Protocol PRN Reason: Per Protocol Last Titration: 05/22/18 07:01 Dose: 1,000 units/hr, 10 mls/hr Morphine Sulfate (Morphine Inj) 2 mg IV.PUSH Q3H PRN PRN Reason: Acute Pain Last Admin: 05/22/18 07:40 Dose: 2 mg Sodium Chloride (Ns Flush) 2 ml IV.FLUSH UNSCH PRN PRN Reason: FLUSH AFTER USING IV ACCESS Allergies Allergy/AdvReac Type Severity Reaction Status Date / Time metoprolol Allergy Severe HIVES Verified 05/21/18 20:13 iodine Allergy Unknown RASH/ITCH Verified 05/21/18 20:13 potassium iodide Allergy Unknown RASH/ITCH Verified 05/21/18 20:13 povidone-iodine Allergy Unknown RASH/ITCH Verified 05/21/18 20:13 sodium iodide Allergy Unknown RASH/ITCH Verified 05/21/18 20:13 sodium iodide Allergy Unknown RASH/ITCH Verified 05/21/18 20:13 Home Medications Medication Instructions Recorded Confirmed Type atorvastatin 40 mg PO HS 05/21/18 05/22/18 History clopidogrel 75 mg PO DAILY 05/21/18 05/21/18 History digoxin 125 mcg PO DAILY 05/21/18 05/22/18 History diltiazem HCl [Cartia XT] 180 mg PO DAILY 05/21/18 05/22/18 History aspirin 81 mg PO DAILY 05/22/18 05/22/18 History omeprazole 20 mg PO DAILY 05/22/18 05/22/18 History Exam Vital signs: Vital Signs 05/21/18 20:13 05/21/18 20:47 05/21/18 21:25 Temperature 98.8 F Pulse Rate 105 H 83 Respiratory Rate 22 18 Blood Pressure 171/83 H 160/84 H Pulse Oximetry 97 97 95 05/21/18 23:31 05/22/18 00:30 05/22/18 01:56 Temperature Pulse Rate 95 H 88 92 H Respiratory Rate 19 18 18 Blood Pressure 145/74 H 141/75 H 145/74 H Pulse Oximetry 95 96 05/22/18 04:59 05/22/18 07:39 Temperature Pulse Rate 92 H 92 H Respiratory Rate 20 16 Blood Pressure 143/84 H 152/85 H Pulse Oximetry 96 Intake & Output 05/21/18 05/22/18 05/22/18 18:59 06:59 18:59 Weight 90.718 kg Narrative: GENERAL: NAD, AAOx3 SKIN: Warm and dry. HEENT: Atraumatic. Normocephalic. Pupils equal and round. No scleral icterus. No injection or drainage. No nasal bleeding or discharge. Mucous membranes pink and moist. NECK: Trachea midline. No JVD. CARDIO: Regular rate and rhythm. RESP: CTA bilaterally. No accessory muscle use. Breath sounds equal bilaterally. ABD: +BS, soft, non-tender, nondistended. EXT: Left elbow swelling and mild erythema and very sensitive to light touch. NEURO: Awake and alert. Motor grossly within normal limits. Unable to flex or extend left elbow due to pain. Normal speech. PSYCHIATRIC: Appropriate mood and affect; insight and judgment normal. Results - Labs CBC & Chem 7: 05/21/18 20:51 05/21/18 20:51 Labs: Short CBC 05/21/18 Range/Units 20:51 WBC 10.9 (4.0-11.0) th/mm3 Hgb 14.7 (13.0-17.0) gm/dL Hct 42.8 (39.0-51.0) % Plt Count 193 (150-450) th/mm3 BMP 05/21/18 20:51 Sodium 138 Potassium 4.2 Chloride 104 Carbon Dioxide 27.4 BUN 14 Creatinine 1.12 Calcium 8.8 Cardiac Enzymes 05/21/18 05/21/18 05/22/18 Range/Units 20:51 23:35 05:07 Troponin I Less than 0.02 L Less than 0.02 L Less than 0.02 L (0.02-0.05) ng/mL - Imaging Impressions Chest X-Ray 05/21/18 20:37 CONCLUSION: Stable chest without evidence of acute cardiopulmonary process. Caprini VTE Risk Assessment Caprini VTE Risk Assessment: Moderate/High Risk (score >= 2) Caprini Risk Assessment Model: Point Value = 1 Point Value = 2 Point Value = 3 Point Value = 5 Age 41-60 Minor surgery BMI > 25 kg/m2 Swollen legs Varicose veins or History of unexplained or recurrent spontaneous Oral contraceptives or hormone replacement Sepsis (< 1 month) Serious lung disease, including pneumonia (< 1 month) Abnormal pulmonary function Acute myocardial infarction Congestive heart failure (< 1 month) History of inflammatory bowel disease Medical patient at bed rest Age 61-74 Arthroscopic surgery Major open surgery (> 45 min) Laparoscopic surgery (> 45 min) Malignancy Confined to bed (> 72 hours) Immobilizing plaster cast Central venous access Age >= 75 History of VTE Family history of VTE Factor V Leiden Prothrombin [id number] Lupus anticoagulant Anticardiolipin antibodies Elevated serum homocysteine Heparin-induced thrombocytopenia Other congenital or acquired thrombophilia Stroke (< 1 month) Elective arthroplasty Hip, pelvis, or leg fracture Acute spinal cord injury (< 1 month) Prophylaxis Regimen: Total Risk Factor Score Risk Level Prophylaxis Regimen 0-1 Low Early ambulation 2 Moderate Order ONE of the following: *Sequential Compression Device (SCD) *Heparin 5000 units SQ BID 3-4 Higher Order ONE of the following medications: *Heparin 5000 units SQ TID *Enoxaparin/Lovenox 40 mg SQ daily (WT < 150 kg, CrCl > 30 mL/min) *Enoxaparin/Lovenox 30 mg SQ daily (WT < 150 kg, CrCl > 10-29 mL/min) *Enoxaparin/Lovenox 30 mg SQ BID (WT < 150 kg, CrCl > 30 mL/min) AND/OR *Sequential Compression Device (SCD) 5 or more Highest Order ONE of the following medications: *Heparin 5000 units SQ TID (Preferred with Epidurals) *Enoxaparin/Lovenox 40 mg SQ daily (WT < 150 kg, CrCl > 30 mL/min) *Enoxaparin/Lovenox 30 mg SQ daily (WT < 150 kg, CrCl > 10-29 mL/min) *Enoxaparin/Lovenox 30 mg SQ BID (WT < 150 kg, CrCl > 30 mL/min) AND *Sequential Compression Device (SCD) Assessment and Plan - Assessment (1) Chest pain Code(s): R07.9 - Chest pain, unspecified Status: Acute Plan: Chest pain CAD - Pt is a 67 y/o WM with CAD s/p RCA stent in 2010 and RCA and LAD stent in 2017, paroxysmal atrial fibrillation, HTN, Hyperlipidemia, and diet controlled diabetes. He presented to the ED at [facility] on 05/21/18 for chest pain that began yesterday morning and progressively worsened with radiation down the left arm and diaphoresis. - Pt was given morphine in the ED which seemed to help some with the pain but it is still currently present. - EKG appears to show [address] depressions, which are new compared to 2014 EKG. Serial CE were negative. - Pt was started on Heparin gtt and Nitro gtt in the ED. - Keep pt NPO - He has been seen by Cardiology this morning and they are planning for LHC this afternoon. - Cont. Digoxin, Diltiazem, statin, ASA, Plavix - pt has documented allergy to Metoprolol and Coreg, he broke out is diffuse rash related to these medications previously - Telemetry monitoring - Supportive care Addendum: - Pt underwent LHC (05/22/18) --> Patent left anterior descending and right coronary stents. [id number] branch vessel coronary artery disease. - Cardiology is adding Imdur 60mg po daily. He reports that in the past he had been on Isosorbide BID and had significant headaches with that. He was instructed to try the medication and monitor his BP at home and should he have adverse effects, ie headaches, then he is to call Dr. Juarez office for further recommendations. HTN - Cont. home meds - Monitor Hyperlipidemia - Cont. home meds Paroxysmal atrial fibrillation - Cont. Dig and Diltiazem - Telemetry GERD - Cont. PPI Left elbow pain - Pt also complained of pain and swelling in the left elbow for the last 2-3 days, very sensitive to touch and pt is unable to move the joint much at all due to significant pain. Pt with hx of gout and has used Indomethacin in the past for gout - Pt reports that he had been doing some repetitive movements (sawing and hammering) when building something the day prior to the onset of his elbow pain - We will give a dose of Solu-medrol prior to discharge. - We will prescribe a Medrol dose pack at discharge. If his elbow does not improve over the weekend he is to call his PCP, Dr. Turner, on Friday for a followup appt. (2) CAD (coronary artery disease) Code(s): I25.10 - Atherosclerotic heart disease of [place] coronary artery without angina pectoris Status: Acute (3) HTN (hypertension) Code(s): I10 - Essential (primary) hypertension Status: Acute (4) Paroxysmal atrial fibrillation Code(s): I48.0 - Paroxysmal atrial fibrillation Status: Acute (5) Hyperlipidemia Code(s): E78.5 - Hyperlipidemia, unspecified Status: Acute (6) Joint pain Code(s): M25.50 - Pain in unspecified joint Status: Acute (1) Chest pain Qualifiers: Chest pain type: other chest pain Qualified Code(s): R07.89 - Other chest pain; R07.8 - Other chest pain
[2018-05-22] MEDS ORDERED: Digoxin 125 MCG Tablet PO SCH (09:00)
[2018-05-22] MEDS ORDERED: Pantoprazole Sodium 20 MG DR Tablet PO SCH (09:00)
[2018-05-22] MEDS ORDERED: Sod Chloride 0.9% Inj 1,000 ML IV.CONT SCH (09:00)
[2018-05-22] MEDS ORDERED: dilTIAZem CD 180 MG Capsule PO SCH (09:00)
[2018-05-22] MEDS ORDERED: Heparin/NS PF Inj 500 ML ONE (11:32)
[2018-05-22] MEDS ORDERED: Heparin 10,000 UNITS/10 ML Vial (for IV use) ONE (11:33)
[2018-05-22] MEDS ORDERED: fentaNYL Citrate Inj 100 MCG/2 ML Ampul ONE (11:33)
[2018-05-22] MEDS ORDERED: Hydrocortisone Sod Succinate 100 MG Vial ONE (11:38)
--- NOTE | 2018-05-22 12:23 | CATHPROC ---
[facility] Report Study Information Study Number Admission Scheduled Start Study Start [id number] May 21 2018 11:19PM 05/22/2018 May 22 2018 11:20AM [facility] Cardiac Catheterization Admit Source Facility Department Other [facility] - Executive Vice President And Chief Financial Officer Physician and Clinical Staff Initial Terrell Shook Exhibits Coordinator Jose Kaba,RYANN Exhibits Coordinator Arnulfo Aguilar,RYANN Recorder Indigo Avery,RT(R) Scrub Princess Jensen,TERRITORY SALES REPRESENTATIVE TECH2 Procedures Performed Procedure Location (Site) Vessel Name Coronary Angiograms LCA Left Coronary Coronary Angiograms RCA Right Coronary L Heart Cath Equipment Time Wound Nurse Description Size Mfg Part Number Used/Scraped TRANSDUCER, TRUWAVE [id number] 11:21 BRADLEY REGALADO * Used W/STOCKCOCK *[id number] *[id number] *[id number] 11:21 [employer] BLANKET,WARM AIR CCL * Used *[id number] 11:21 [employer] PACK, CCL CUSTOM * Used *[id number] 11:21 [employer] SUPPORT, ARTERIAL ADULT 20507 *[id number] Used BAND, RADIAL COMPRESSION TR [id number] 12:17 [employer] 29CM Used LARGE 29 *[id number] SHEATH, FR6 RADIAL PRELUDE 11:21 [employer] FR 6 [id number] Used EASE 11CM [id number] 11:21 [employer] WIRE, EXCHANGE 260CM 3MMJ 260CM Used *[id number] 11:21 NAMIC MANIFOLD, 4 PORT * Used *[id number] 11:21 [employer] OMNIPAQUE, 350 MG, 150ML 150ML [id number] Used History: Current Medications Medication Dosage/Unit Route Frequency Last Date/Time Taken Statins (any) ASA PLAVIX DIGOXIN History: Allergies Allergy Reaction potassium iodide RASH/ITCH sodium iodide RASH/ITCH iodine RASH/ITCH povidone-iodine RASH/ITCH metoprolol HIVES History: Risk Factors Family History of Hypertension Dyslipidemia Previous SD Previous Heart Failure Premature CAD Yes Yes Yes No No Prior Valve Prior PCI Prior PCIDate Prior CABG Surgery No Yes 02/10/2018 No Cerebrovascular Peripheral Artery Chronic Lung On Dialysis Diabetes Diabetes Therapy Disease Disease Disease No No No No Yes Diet History: Symptoms/Diagnosis Selection Items Chest pain History: CV Disease Selection Items Known CAD History: Stress Tests Stress or Imaging Studies Performed Yes Stress Test SPECT Stress Test SPECT Result Stress Test SPECT Ischemia Risk/Extent Yes Positive Intermediate History: Other Disease Selection Items CAD Gerd HTN History: SD/CV Data Previous Cath Date 10/13/2010 History: Other Current Smoker Method Quit Packs a Day Years Used Pack Years No Cigarettes 30 Years Ago 1 10 10 Labs Hgb (g/dl) Hct (%) WBC (l/cumm) Platelets (thousands) 11.60-17.00 35.00-51.00 4.00-11.00 150.00-450.00 14.7 42.8 10.9 193 BUN (mg/dl) Creatinine (mg/dl) BUN:Creatinine (1:x) 7.00-18.00 0.50-1.30 10.00-20.00 14 1.1 12.7 Na (meq/l) K (meq/l) 136.00-145.00 3.50-5.10 138 4.2 INR (PTT:PT) 0.90-1.10 1 Troponin I (ng/ml) CPK-MB (ng/ML) 0.02-0.05 0.50-3.60 0.02 Not Drawn Medication Medication Total Dose (Bolus/Oral) Medication Total Dosage/Unit 1% XYLOCAINE 5 mL FENTANYL 50 mcg NTG (IC) 200 mcg VERSED 2 mg Medications (Bolus/Oral) Medication Time Given Dosage/Unit Administered By Reason VERSED 05/22/2018 11:57:52 AM 2 mg Arnulfo Aguilar 2 mg VERSED given in lab by Arnulfo Aguilar RN in Right Antecubital via Peripheral IV. Ordered by Terrell Celis. FENTANYL 05/22/2018 11:58:18 AM 50 mcg Arnulfo Aguilar 50 mcg FENTANYL given in lab by Arnulfo Aguilar RN in Right Antecubital via Peripheral IV. Ordered by Terrell Herman. 1% XYLOCAINE 05/22/2018 12:00:22 PM 5 mL Terrell Herman 5 mL 1% XYLOCAINE given in lab by Terrell Herman in Right Radial via Subcutaneous. NTG (IC) 05/22/2018 12:01:15 PM 200 mcg Terrell Herman 200 mcg NTG (IC) given in lab by Terrell Herman in Right Radial via Intra-arterial. Medication (Drip) Medication Time Given Dosage/Unit Concentration/Unit Diluent (ml) Solution IV Solutions 05/22/2018 11:20:36 AM 50 mL (IV) NaCl .9 Patient arrived on IV Solutions in Right Antecubital via Peripheral IV. Pump/Drip Flow using NaCl .9. NITROGLYCERIN DRIP 05/22/2018 11:20:15 AM 15 mcg/min 50 mg 250 D5W Patient arrived on 15 mcg/min NITROGLYCERIN DRIP in Right Antecubital via Peripheral IV. Pump/Drip Fl ow = 4.5 ml/hr using D5W with a concentration of 50 mg in 250 ml. Initial Case Assessment Cardiovascular Edema Present Skin color Skin None Normal Warm Dry Circulatory - Right Pulses Dorsalis Pedis Femoral Radial 2 2 2 Scale (0,1,2,3,4,d) Scale (0,1,2,3,4,d) Neurological State Oriented to time-place- Alert Moves all extremities person Final Case Assessment Cardiovascular HR Rhythm NIBP Chest Pain 98 nsr 154/85 0 Edema Present Skin color Skin None Normal Warm Dry Circulatory - Right Pulses Dorsalis Pedis Femoral Radial 2 2 2 Scale (0,1,2,3,4,d) Scale (0,1,2,3,4,d) Neurological State Oriented to time-place- Alert Moves all extremities person Chronological Log Time Study Chronological Log 11:20:13 Patient arrived via Bed. 11:20:14 Patient Name, D.O.B, / Armband Verified By R.N. Patient arrived on 15 mcg/min NITROGLYCERIN DRIP in Right Antecubital via Peripheral IV. Pump /Drip Flow = 4.5 11:20:15 ml/hr using D5W with a concentration of 50 mg in 250 ml. 11:20:15 Consent signed by the physician and the patient and verified by the Executive Vice President And Chief Financial Officer staff. 11:20:19 Pre-op and post- op instructions given; patient acknowledges understanding of instruction s. 11:20:22 Allens test performed on the right radial and ulnar artery. 11:20:25 Patient has been NPO for More than 6Hrs. 11:20:26 Skin Breakdown- none per pt 11:20:28 Patient Warmer Placed on the Table. 11:20:29 Willy Prominences Protected 11:20:33 A # 20 IV was noted in the Hand (left). Grade = 0 11:20:34 A # 20 IV was noted in the Antecubital (right). Grade = 0 11:20:36 Patient arrived on IV Solutions in Right Antecubital via Peripheral IV. Pump/Drip Flow usin g NaCl .9. 11:20:37 History and physical on the chart or being dictated. Assessment: Initial Case, Edema=None, Color=Normal, Skin = Warm, Dry 11:26:16 Right Pulses: Saji Ped=2, Femoral=2, Radial=2 Neurological: State=Alert, Ox3, SPAIN 11:26:24 Reference ECG taken Vitals capture started with the following parameters, Patient=Adult, Interval=5 min, Initial Pr pcbmpe=423 mmHg, 11:33:57 Deflation Rate=5 mmHg, Cuff placed on Left Arm 11:34:43 HR=88 bpm, UDFB=044/87 mmhg, SpO2=97.0 %, Resp=15 B/min, Pain=0, Tera=10, Greene=2 11:39:09 Right Radial and groin(s) prepped with 2% chlorhexidine, and draped after a 3 min. waiting time. 11:40:13 HR=91 bpm, HLWW=810/88 mmhg, SpO2=97.0 %, Resp=20 B/min, Pain=0, Tera=10, Greene=2 11:44:29 MD paged 11:44:41 HR=91 bpm, DOBL=787/96 mmhg, SpO2=98.0 %, Resp=11 B/min, Pain=0, Tera=10, Greene=2 11:48:00 Pressure channel 1 zeroed. 11:49:42 HR=94 bpm, FWNK=493/92 mmhg, SpO2=98.0 %, Resp=16 B/min, Pain=0, Tera=10, Greene=2 11:54:23 MD responded 11:54:39 HH=858 bpm, FLKL=631/99 mmhg, SpO2=97.0 %, Resp=14 B/min, Pain=0, Tera=10, Greene=2 11:54:58 MD arrived. 11:57:52 2 mg VERSED given in lab by Arnulfo Aguilar, RYANN in Right Antecubital via Peripheral IV. Orde red by Terrell Herman. 11:58:18 50 mcg FENTANYL given in lab by Arnulfo Aguilar, RYANN in Right Antecubital via Peripheral IV. Ordered by Terrell Herman. 11:59:43 HR=98 bpm, ZTNR=697/95 mmhg, SpO2=96 %, Resp=14 B/min, Pain=0, Tera=10, Greene=2 Time Out. Correct patient, correct procedure, correct physician, labs, allergies, and equipment verified with blood and plasma laboratory assistant 12:00:02 team present. Fire risk assesment completed (see hard stop sheet for coding). Time Out Conc urred by MD and individual staff in procedure. 12:00:14 Case Start 12:00:22 5 mL 1% XYLOCAINE given in lab by Terrell Herman in Right Radial via Subcutaneous. 12:00:55 Access site was Right Radial Artery . A SHEATH, FR6 RADIAL PRELUDE EASE 11CM FR 6 was advanced into the Radial (right) using the Perc utaneous 12:01:04 technique. 12:01:15 200 mcg NTG (IC) given in lab by Terrell Herman in Right Radial via Intra-arterial. A JR 5.0 INFINITI CATHETER FR 5 was advanced over a wire. OMNIPAQUE, 350 MG, 150ML 150ML was us ed for 12:02:44 injections. 12:03:55 The RCA was injected and visualized at various angles. OMNIPAQUE, 350 MG, 150ML 150ML used . After removing the current catheter a JL 3.5 INFINITI CATHETER FR 5 was advanced over a WIRE, E XCHANGE 260CM 12:04:18 3MMJ 260CM. 12:04:42 HR=92 bpm, ZCZL=305/82 mmhg, SpO2=92.0 %, Resp=15 B/min, Pain=0, Tera=10, Greene=2 Recorded Pressure: Ao, HR=91, Condition=Condition 1 12:06:41 (Aorta) Ao 125/73/98 12:06:55 The LCA was injected and visualized at various angles. OMNIPAQUE, 350 MG, 150ML 150ML used . 12:09:09 Catheter was removed 12:09:41 AP=571 bpm, KVXB=622/85 mmhg, SpO2=92.0 %, Pain=0, Tera=10, Greene=2 12:10:10 Case End (Physician broke scrub) Assessment: Final Case, HR=98 BPM, Rhythm=nsr, DIFY=707/85 mmhg, Chest Pain=0, Edema=None, Col or=Normal, Skin = Warm, Dry 12:10:22 Right Pulses: Saji Ped=2, Femoral=2, Radial=2 Neurological: State=Alert, Ox3, [place] Radial Compression Device Used. 15 mLs of air placed in BAND, RADIAL COMPRESSION TR LARGE 29 2 9CM. Affected 12:10:52 hand 96 % O2 saturation. 12::59 No case complications noted. 12::59 Cine recording checked. 12:11:01 Bedside Report will be given. 12:11:08 A Left Heart Cath was performed. 12:14:44 HR=86 bpm, CCMW=555/85 mmhg, SpO2=94.0 %, Resp=14 B/min, Pain=0, Tera=10, Greene=2 12:19:45 HR=69 bpm, BHXZ=702/83 mmhg, SpO2=96.0 %, Pain=0, Tera=10, Greene=2 12:23:12 [facility] Study - Contrast Media Used In Study Contrast Total Opened (mL) Total Used (mL) Total Wasted (mL) Omnipaque 40 40 0 End Study - Maximum Contrast Load Max Contrast Load (mL) 412.2 End Study - Radiation Exposure Fluoro Time (minutes) 1.4 End Study - Patient Disposition Complications Transferred To Interventional Outcome No Executive Vice President And Chief Financial Officer Holding No attempt made
--- NOTE | 2018-05-22 13:05 | MA ---
cc: Terrell Herman MD DATE: 05/22/2018 INDICATION: Unstable angina. PROCEDURES PERFORMED: 1. Fluoroscopy with interpretation. 2. Coronary angiography. METHOD: Risks, benefits and alternatives discussed with the patient. The patient understood and consented. The patient was brought into the catheterization lab and placed on the catheterization table. The right wrist was prepped and draped in sterile fashion. The right wrist was anesthetized with 2% lidocaine. The right radial artery was cannulated and a 6-Occitan and 7 cm sheath was placed without difficulty. CORONARY ANGIOGRAPHY: 1. Left main coronary artery is angiographically normal. 2. Left anterior descending coronary has 30-40% stenosis proximally at the bifurcation of the first septal gauge and instrument inspector, but the remainder of the vessels widely patent, stents widely patent. 3. Left circumflex gives rise to a smaller obtuse marginal branch. There is about 30-40% stenosis eccentric just prior to the bifurcation. There is a sinus sharona branch present. 4. Right coronary artery is a dominant vessel and right posterior descending branch. Right coronary in the mid segment is widely patent with mild luminal irregularities. CONCLUSIONS: 1. Patent left anterior descending and right coronary stents. 2. Ugit-jj-yopvfbub branch vessel coronary artery disease. PLAN: There is no significant high-grade obstruction. We will continue with aggressive medical management. We will add long-acting nitrate. Can follow up in the outpatient setting. Terrell Herman MD SIVAN/sv , 12:22 PM , 12:28 PM
[2018-05-22] MEDS ORDERED: MethylPREDNISolone Sod Succinate Inj 40 MG/ML Vial IV.PUSH ONE (13:43)
[2018-05-22] MEDS ORDERED: MethylPREDNISolone Sod Succinate Inj 125 MG/2 ML Vial IV.PUSH ONE (13:46)
--- NOTE | 2018-05-22 14:35 | ECG ---
Date Performed: 05/21/2018 Time Performed: 20:16:52 PTAGE: 67 years EKG: SINUS TACHYCARDIA MINIMAL ST DEPRESSION ABNORMAL RHYTHM ECG Since the PREVIOUS TRACING , no significant change noted PREVIOUS TRACIN08/14/2007 20.40 DOCTOR: Reji Melvin Interpretating Date/Time 05/22/2018 14:32:25
[2018-05-22] MEDS ORDERED: Iohexol 350 MG/ML 50 ML Vial (for Cath Lab) IV.SIG ONE (15:24)
[2018-05-23] MEDS ORDERED: Isosorbide Mononitrate 60 MG ER 24HR Tablet (Imdur) PO SCH (07:00)
--- NOTE | 2018-05-24 08:48 | ECG ---
Date Performed: 05/21/2018 Time Performed: 23:41:12 PTAGE: 67 years EKG: Sinus rhythm WITH OCCASIONAL SUPRAVENTRICULAR PREMATURE COMPLEXES BORDERLINE ECG PREVIOUS TRACING : 05/21/2018 20.16 DOCTOR: Terrell Herman Interpretating Date/Time 05/24/2018 08:39:40
== END 2018-05-22 15:25 | disposition home or self-care (01) ==
LOC: NEPE 20:07 → NEDA 23:19 → NEDH 05-22 03:19
PROVIDERS: ADMIT Hospitalist; ATTEND Hospitalist